=== PATIENT | male | born 1965 | race Caucasian/White ===

== ENCOUNTER → 2016-08-28 | Outpatient (CLI) | payer BC ==
--- NOTE | 2016-08-28 13:18 | ECHOS ---
DATE OF SERVICE: 08/28/2016 AGE: 50Y SEX: M HT: 65" WT: 195 lbs. Protocol Baldemar: Others: Stage: Dur. of Exercise: 9 minutes *Heart Rate Blood Pressure *Rest: 68 Rest: 159/50 * *Max. Achieved: 159 Maximum BP: 192/52 85% PMHR: 143 100% PMHR: 168 *METS: 10.3 INDICATIONS: Chest pain. MEDICATIONS: Aspirin. Baseline rhythm is a sinus mechanism, rate of 68, normal axis and intervals. Normal electrocardiogram. Baseline blood pressure 159/50 mm/Hg. Patient exercised on Baldemar protocol for 9 minutes reaching peak rate of 159 beats per minute, which is equal to 94% of maximum predicted heart rate; peak blood pressure 192/56 mmHg. Test was discontinued due to fatigue. There was no chest pain. Electrocardiographic monitoring revealed no evidence of diagnostic ischemic ST deviation. FINDINGS: Baseline echocardiogram revealed normal wall motion. At peak exercise there was normal wall motion augmentation with no hypokinesis or dyskinesis. CONCLUSION: 1. Good exercise tolerance with normal electrocardiograph response to exercise. 2. Normal stress echocardiogram with no evidence of stress-induced ischemia.
== END ==
LOC: RADNMMAIN 09:03
PROVIDERS: ATTEND Internal Medicine
DX: R07.9 Chest pain, unspecified (principal)
CPT/HCPCS: 93017; 93350